=== PATIENT | female | born 1960 | race Caucasian/White ===

== ENCOUNTER 2025-02-03 03:40 | Emergency (ER) | payer MEDICARE, SELFPAY ==
[2025-02-03 04:36] LABS: #Basophils 0.07 10x3/uL (0.0-0.2); #Eosinophils 0.33 10x3/uL (0.0-0.7); #Monocytes 0.94 10x3/uL (0.11-0.59); #Neutrophils 4.36 10x3/uL (1.40-6.50); %Basophils 0.9 % (0.0-1.0); %Eosinophils 4.4 % (0.0-10.0); %Lymphocytes 22.6 % (21.0-51.0); %Monocytes 12.6 % (0.0-10.0); %Neutrophils 58.7 % (42.0-75.0); Hematocrit 37.0 % (36.0-47.0); Hemoglobin 11.7 g/dL (12.0-16.0); Mean Corpuscular Hemoglobin 27.9 pg (27.0-31.0); Mean Corpuscular Volume 88.3 fL (78.0-98.0); Platelet Count 318 10x3/uL (130-400); Red Blood Cell (RBC) Count 4.19 mill/uL (4.20-5.40); White Blood Cell (WBC) Count 7.44 10x3/uL (4.8-10.8)
[2025-02-03 04:58] LABS: ALT (SGPT) 31 U/L (Less than 34); AST (SGOT) 31 U/L (11-34); Albumin 2.9 g/dL (3.1-4.5); Alkaline Phosphatase 93 U/L (40-110); Anion Gap 19 mmol/L (10-20); BUN (Urea Nitrogen) 7 mg/dL (9.8-20.1); Bilirubin, Total 1.2 mg/dL (0.3-1.2); Calc. Creatinine Clearance 0 mL/min (70-130); Calcium 9.1 mg/dL (7.8-10.44); Carbon Dioxide 21 mmol/L (23-31); Chloride 101 mmol/L (98-107); Globulin 3.0 g/dL (2.4-3.5); Glucose 189 mg/dL (80-115); Potassium 3.2 mmol/L (3.5-5.1); Sodium 138 mmol/L (136-145)
[2025-02-03 05:11] LABS: Acetaminophen Less than 10 mcg/mL (Less than 10); Salicylate Less than 8.0 mg/dL (Less than 8.0)
[2025-02-03] MEDS ORDERED: Iopamidol 370 76% 100 ML VIAL ONE (14:28)
== END 2025-02-03 06:52 | disposition left against medical advice (07) ==
LOC: ERS 03:40
DX: K63.1 Perforation of intestine (nontraumatic) (principal); I21.4 Non-ST elevation (NSTEMI) myocardial infarction; E11.9 Type 2 diabetes mellitus without complications; F17.290 Nicotine dependence, other tobacco product, uncomplicated
CPT/HCPCS: 36416; 70450; 74177; 80053; 80307; 83605; 83880; 84484; 85025; 87040; 87077; 87149; 93005; Q9967

== ENCOUNTER 2025-02-03 08:59 | Inpatient (IN) | payer MEDICARE ==
[2025-02-03] MEDS ORDERED: Droperidol 5 MG/2 ML VIAL ONE (09:52)
[2025-02-03 10:11] LABS: #Basophils 0.08 10x3/uL (0.0-0.2); #Eosinophils 0.39 10x3/uL (0.0-0.7); #Monocytes 0.97 10x3/uL (0.11-0.59); #Neutrophils 4.57 10x3/uL (1.40-6.50); %Basophils 1.1 % (0.0-1.0); %Eosinophils 5.2 % (0.0-10.0); %Lymphocytes 19.7 % (21.0-51.0); %Monocytes 12.8 % (0.0-10.0); %Neutrophils 60.3 % (42.0-75.0); Hematocrit 38.8 % (36.0-47.0); Hemoglobin 12.2 g/dL (12.0-16.0); Mean Corpuscular Hemoglobin 28.2 pg (27.0-31.0); Mean Corpuscular Volume 89.8 fL (78.0-98.0); Platelet Count 348 10x3/uL (130-400); Red Blood Cell (RBC) Count 4.32 mill/uL (4.20-5.40); White Blood Cell (WBC) Count 7.57 10x3/uL (4.8-10.8)
[2025-02-03 10:25] LABS: INR-International Normal Ratio 1.0; Prothrombin Time 13.5 sec (12.0-14.7)
[2025-02-03 10:26] LABS: PTT 32.6 sec (22.9-36.1)
[2025-02-03 10:27] LABS: ALT (SGPT) 35 U/L (Less than 34); AST (SGOT) 38 U/L (11-34); Albumin 3.1 g/dL (3.1-4.5); Alkaline Phosphatase 99 U/L (40-110); Anion Gap 21 mmol/L (10-20); BUN (Urea Nitrogen) 7 mg/dL (9.8-20.1); Bilirubin, Total 1.3 mg/dL (0.3-1.2); Calc. Creatinine Clearance 0 mL/min (70-130); Calcium 9.5 mg/dL (7.8-10.44); Carbon Dioxide 22 mmol/L (23-31); Chloride 99 mmol/L (98-107); Globulin 3.3 g/dL (2.4-3.5); Glucose 212 mg/dL (80-115); Potassium 3.7 mmol/L (3.5-5.1); Sodium 138 mmol/L (136-145)
[2025-02-03] MEDS ORDERED: Glucagon 1 MG/ML KIT IM PRN (13:52)
[2025-02-03] MEDS ORDERED: Dextrose 50% Abboject 50 ML SYRINGE SLOW IVP PRN (13:52)
[2025-02-03] MEDS ORDERED: TETANUS, DIPHTHERIA TOX,ADULT (TDVAX) 0.5 ML VIAL IM ONE (13:52)
[2025-02-03 16:32] VITALS: BMI 40.2
[2025-02-03 17:30] LABS: Magnesium 1.0 mg/dL (1.6-2.6)
[2025-02-03] MEDS: Insulin Glargine 30 UNITS/0.3 ML VIAL SC SCH (20:53)
[2025-02-03] MEDS: Ondansetron PF 4 MG/2 ML Vial IVP PRN (21:51)
[2025-02-04] MEDS: Vancomycin 1.25 GM / NS 250 ML VIAL-2-BAG IVPB SCH ×2 (01:57→18:31)
[2025-02-04 04:45] LABS: #Basophils Less than 0.03 10x3/uL (0.0-0.2); #Eosinophils 0.08 10x3/uL (0.0-0.7); #Monocytes 0.07 10x3/uL (0.11-0.59); #Neutrophils 5.78 10x3/uL (1.40-6.50); %Basophils 0.2 % (0.0-1.0); %Eosinophils 1.2 % (0.0-10.0); %Lymphocytes 6.5 % (21.0-51.0); %Monocytes 1.1 % (0.0-10.0); %Neutrophils 90.1 % (42.0-75.0); Hematocrit 36.7 % (36.0-47.0); Hemoglobin 11.9 g/dL (12.0-16.0); Mean Corpuscular Hemoglobin 28.3 pg (27.0-31.0); Mean Corpuscular Volume 87.2 fL (78.0-98.0); Platelet Count 268 10x3/uL (130-400); Red Blood Cell (RBC) Count 4.21 mill/uL (4.20-5.40); White Blood Cell (WBC) Count 6.42 10x3/uL (4.8-10.8)
[2025-02-04 05:10] LABS: ALT (SGPT) 27 U/L (Less than 34); AST (SGOT) 28 U/L (11-34); Albumin 2.7 g/dL (3.1-4.5); Alkaline Phosphatase 92 U/L (40-110); Anion Gap 19 mmol/L (10-20); BUN (Urea Nitrogen) 4 mg/dL (9.8-20.1); Bilirubin, Total 1.2 mg/dL (0.3-1.2); Calc. Creatinine Clearance 144 mL/min (70-130); Calcium 8.5 mg/dL (7.8-10.44); Carbon Dioxide 19 mmol/L (23-31); Chloride 101 mmol/L (98-107); Globulin 2.8 g/dL (2.4-3.5); Glucose 197 mg/dL (80-115); Potassium 3.2 mmol/L (3.5-5.1); Sodium 136 mmol/L (136-145)
[2025-02-04 06:50] LABS: Magnesium 1.2 mg/dL (1.6-2.6)
[2025-02-04] MEDS ORDERED: AMPHETAMINE PO SCH (09:00)
[2025-02-04] MEDS ORDERED: DEXTROAMPHETAMINE PO SCH (09:00)
[2025-02-04] MEDS: Magnesium Sulfate In Water 4 GM in Premix 1 BAG IVPB SCH (10:15)
[2025-02-04] MEDS: Metoprolol Succinate XL 25 MG ER.TAB PO SCH (10:17)
[2025-02-04] MEDS: Enoxaparin 40 MG (0.4 mL) SYRINGE SC SCH (10:18)
[2025-02-04 12:24] VITALS: BMI 40.2
[2025-02-04] MEDS: TETANUS AND DIPHTHERIA TOX/PF 0.5 ML DISP.SYRIN IM SCH (13:36)
[2025-02-04 14:05] LABS: Potassium 3.6 mmol/L (3.5-5.1)
[2025-02-05 05:28] LABS: #Basophils Less than 0.03 10x3/uL (0.0-0.2); #Eosinophils 0.29 10x3/uL (0.0-0.7); #Monocytes 0.75 10x3/uL (0.11-0.59); #Neutrophils 2.53 10x3/uL (1.40-6.50); %Basophils 0.4 % (0.0-1.0); %Eosinophils 6.4 % (0.0-10.0); %Lymphocytes 20.3 % (21.0-51.0); %Monocytes 16.6 % (0.0-10.0); %Neutrophils 55.9 % (42.0-75.0); Hematocrit 34.6 % (36.0-47.0); Hemoglobin 11.0 g/dL (12.0-16.0); Mean Corpuscular Hemoglobin 28.5 pg (27.0-31.0); Mean Corpuscular Volume 89.6 fL (78.0-98.0); Platelet Count 293 10x3/uL (130-400); Red Blood Cell (RBC) Count 3.86 mill/uL (4.20-5.40); White Blood Cell (WBC) Count 4.53 10x3/uL (4.8-10.8)
[2025-02-05 05:41] LABS: Vancomycin, Random 13.6 ug/mL (See Comment)
[2025-02-05 05:49] LABS: ALT (SGPT) 29 U/L (Less than 34); AST (SGOT) 30 U/L (11-34); Albumin 2.3 g/dL (3.1-4.5); Alkaline Phosphatase 76 U/L (40-110); Anion Gap 13 mmol/L (10-20); BUN (Urea Nitrogen) Less than 4 mg/dL (9.8-20.1); Bilirubin, Total 0.6 mg/dL (0.3-1.2); Calc. Creatinine Clearance 144 mL/min (70-130); Calcium 8.0 mg/dL (7.8-10.44); Carbon Dioxide 24 mmol/L (23-31); Chloride 102 mmol/L (98-107); Globulin 2.3 g/dL (2.4-3.5); Glucose 238 mg/dL (80-115); Magnesium 1.3 mg/dL (1.6-2.6); Potassium 3.1 mmol/L (3.5-5.1); Sodium 136 mmol/L (136-145)
[2025-02-05] MEDS: Magnesium Sulfate In Water 4 GM in Premix 1 BAG IVPB SCH (08:04)
[2025-02-05] MEDS: Acetaminophen 325 MG TAB PO PRN (08:05)
[2025-02-05 16:00] VITALS: BP 133/63; TEMP 97.8
[2025-02-05] MEDS: Vancomycin 1 GM in Premix 1 BAG IVPB SCH (18:18)
[2025-02-06] MEDS ORDERED: FLU (Fluarix Triv) 25-26 (6MOS UP)/PF 45 MCG/0.5 ML Syringe IM ONE (20:15)
== END 2025-02-05 19:19 | disposition home or self-care (01) | DRG 395 ==
LOC: ERS 08:59 → SURG B 14:21 → 2NO 17:51
PROVIDERS: ADMIT Colon & Rectal Surgery; ATTEND Internal Medicine
PROC: 3E03329 Introduction of Other Anti-infective into Peripheral Vein, Percutaneous Approach (ICD-10-PCS; principal; 2025-02-03)
PROC: 3E0234Z Introduction of Serum, Toxoid and Vaccine into Muscle, Percutaneous Approach (ICD-10-PCS; 2025-02-03)
DX: K63.1 Perforation of intestine (nontraumatic) (principal); E11.9 Type 2 diabetes mellitus without complications; F39 Unspecified mood [affective] disorder; Z79.4 Long term (current) use of insulin; Z66 Do not resuscitate; I10 Essential (primary) hypertension; E83.42 Hypomagnesemia; E87.6 Hypokalemia; Z23 Encounter for immunization; Z95.5 Presence of coronary angioplasty implant and graft; K21.9 Gastro-esophageal reflux disease without esophagitis; E66.9 Obesity, unspecified; G47.30 Sleep apnea, unspecified; Z90.49 Acquired absence of other specified parts of digestive tract; Z90.710 Acquired absence of both cervix and uterus; Z96.641 Presence of right artificial hip joint; Z98.891 History of uterine scar from previous surgery; Z87.891 Personal history of nicotine dependence; I25.10 Atherosclerotic heart disease of native coronary artery without angina pectoris; I25.2 Old myocardial infarction; Z88.8 Allergy status to other drugs, medicaments and biological substances
CPT/HCPCS: 36415; 36416; 70450; 71045; 74018; 74177; 80053; 80202; 80307; 83036; 83605; 83735; 83880; 84100; 84484; 85025; 85610; 85730; 87040; 87077; 87149; 93005; 93306; 96365; 96375; J1650; J1790; J1815; J2060; J2270; J2405; J2543; J3373; J3475; J7050; J7120; Q9967